=== PATIENT | male | born 1955 | race Caucasian/White ===

== ENCOUNTER 2024-10-31 10:47 | Outpatient (REF) | payer MEDICARE, SELFPAY ==
[2024-10-31 12:18] LABS: Vitamin B12 545 pg/mL (200-900)
== END 2024-10-31 10:48 | disposition home or self-care (01) ==
LOC: HO.LAB 10:47
PROVIDERS: PCP Internal Medicine; Visit Provider Psychiatry & Neurology Neurology
DX: G30.9 Alzheimer's disease, unspecified (principal)
CPT/HCPCS: 36415; 82607; 84443

== ENCOUNTER 2025-03-18 13:43 | Outpatient (AMB) | payer MEDICARE, SELFPAY ==
--- NOTE | 2025-03-18 13:51 | MHC.OFFVIS ---
Intake Visit Reasons: f/u appt Allergies codeine Allergy (Unknown, Verified 03/12/25 13:59) Unknown penicillin G Allergy (Unknown, Verified 03/12/25 13:59) Unknown HPI Comments Details: 69 years old man with hypertension, anxiety, depression, coronary artery disease status post bypass surger, tremor, and mild dementia with MOCA in Sep 2024 of 24. He continues to c/o problem with memory. He was in a social situation and told a story multiple times not knowing that he had done that before. His was writing things on paper for him to buy or what was going on in the house. He was getting more confused. Primidone helped him with tremor but it made him sleepy. Propranalol was tried but it has not worked as well. [facility] Medical History (Updated 03/18/25 @ 13:53 by Joshua Benoit MD) Alzheimer dementia Paresthesia of skin Stress MCI (mild cognitive impairment) CAD (coronary artery disease) of artery bypass graft Hypertension Depression with anxiety Review of Systems Const Details: More confused and forgetful. Physical Exam Neuro Other: Mental Status: Alert and oriented to person, place, and time. Normal attention. Normal spontaneous speech, fluency, and comprehension. Cranial Nerves: CN II: Visual hines full to confrontation, visual acuity intact. CN III, IV, : Pupils equal, round, reactive to light and accommodation. Extraocular movements are normal. CN V: Facial sensation is normal. CN VII: Facial movements symmetrical. CN VIII: Hearing intact to bedside conversation is normal. CN IX, X: Palate elevates symmetrically. CN XI: Shoulder shrug and head turn symmetrical. CN XII: Tongue midline without atrophy or fasciculations. Coordination: Dbfxvi-uc-danc and vazv-xd-uqyn testing normal. No dysmetria. Gait and Station: No obvious gait abnormality. No ataxia or instability. Extrapyramidal: Full facial expressions and blinking. No rigidity. Movements are appropriate with no tremor or abnormality. Speech: Normal; no dysarthria or tremor. Assessment & Plan Assessment & Plan (1) Alzheimer dementia: Comment: MRI brain WO at [facility] in Oct 2024: Mild to mod central atrophy NCV/EMG UE This is a normal study. 09/22/21. MRI brain WO at [facility] in Jun 2020: mild to mod atrophy Code(s): G30.9 - Alzheimer's disease, unspecified; F02.80 - Dementia in other diseases classified elsewhere, unspecified severity, without behavioral disturbance, psychotic disturbance, mood disturbance, and anxiety Category: Medical Qualifiers: Alzheimer's disease onset: late onset Dementia severity: mild Dementia behavioral or psychological symptom: without behavioral, psychotic, or mood disturbance or anxiety Qualified Code(s): G30.1 - Alzheimer's disease with late onset; F02.A0 - Dementia in other diseases classified elsewhere, mild, without behavioral disturbance, psychotic disturbance, mood disturbance, and anxiety (2) Tremor: Code(s): R25.1 - Tremor, unspecified Category: Medical Plan Impression: a: Dementia probably of Alzheimer type. His insurance did not cover PET scan b: Tremor Rec: A: Abeta 42/40 and tau level b: Neuropsychiatric eval c: Propranalol 20mg bid d: Memantine 5mg bid Orders: Orders ABeta 42/40 p-tau 217 Eval Today G31.84 - Mild cognitive impairment of uncertain or unknown etiology Referrals Neuropsychiatry Referral F02.A0 - Dementia in other diseases classified elsewhere, mild, without behavioral disturbance, psychotic disturbance, mood disturbance, and anxiety, G30.1 - Alzheimer's disease with late onset Medications: New memantine (Namenda) 5 mg PO BID 180 tabs 0RF propranolol 20 mg (2 x 10 mg) PO BID 120 tabs 0RF Coding Level of Care Code Est Pt Level 4 (65743) Diagnoses Mild late onset Alzheimer's dementia without behavioral disturbance, psychotic disturbance, mood disturbance, or anxiety G30.1; F02.A0 Alzheimer's disease onset: late onset Dementia severity: mild Dementia behavioral or psychological symptom: without behavioral, psychotic, or mood disturbance or anxiety Tremor R25.1
== END 2025-03-18 14:11 | disposition home or self-care (01) ==
LOC: HO.HSM 13:44
PROVIDERS: PCP Internal Medicine; Visit Provider Psychiatry & Neurology Neurology
DX: G30.1 Alzheimer's disease with late onset (principal); F02.A0 Dementia in other diseases classified elsewhere, mild, without behavioral disturbance, psychotic disturbance, mood disturbance, and anxiety; R25.1 Tremor, unspecified
CPT/HCPCS: 99214

== ENCOUNTER 2025-03-18 13:43 | Outpatient (REF) | payer MEDICARE, SELFPAY ==
--- OUTSIDE RECORDS SUMMARY | 2025-03-18 14:54 | XMS_ITS | Clinical Summary ---
Author Organization [facility] Address [address] [place] [phone] Phone Care Team Providers Care Solar Technician Name Role Phone David Hernandez MD Primary Care Provider [phone] Allergies Active Allergy Reactions Criticality Noted Date Comments Atorvastatin Calcium Itching 08/06/2009 Codeine Nausea And Vomiting 12/03/2005 Penicillins High 12/03/2005 Medications simethicone (Phazyme) 250 mg capsule Take 1 capsule by mouth 1 (one) time each day in the evening. 4 Active tadalafiL (CIALIS) 5 mg tablet Take 20 mg by mouth as needed. Active fexofenadine (HOMAR) 180 mg tablet Take 180 mg by mouth daily. Active aspirin 81 mg EC tablet Take 81 mg by mouth daily. Active multivitamin with minerals (CENTRUM/CERTAV IT) 18-400 mg-mcg tablet tablet daily Active buPROPion SR (WELLBUTRIN SR) 200 mg 12 hr tablet Take 1 tablet (200 mg total) by mouth 2 (two) times a day. 180 tablet 1 5 Active rosuvastatin (CRESTOR) 40 mg tablet Take 1 tablet (40 mg total) by mouth 1 (one) time each day. 90 tablet 1 5 Active ezetimibe (ZETIA) 10 mg tablet Take 1 tablet (10 mg total) by mouth 1 (one) time each day. 90 tablet 1 5 Active diclofenac (VOLTAREN) 1 % topical gel Apply 2 g topically 4 (four) times a day. 30 g 3 5 Active primidone (MYSOLINE) 50 mg tablet Take 1 tablet (50 mg total) by mouth 1 (one) time each day. Active amLODIPine (NORVASC) 10 mg tablet Take 1 tablet (10 mg total) by mouth 1 (one) time each day. 90 tablet 1 5 Active omeprazole (PriLOSEC) [address] capsule TAKE 1 CAPSULE BY MOUTH DAILY 90 capsule 1 5 Active lisinopriL (PRINIVIL,ZESTR IL) 10 mg tablet Take 1 tablet (10 mg total) by mouth 1 (one) time each day. 90 tablet 1 5 Active Active Problems Problem Noted Date Diagnosed Date CKD (chronic kidney disease) stage 2, GFR 60-89 ml/min 12/12/2024 Mild cognitive impairment 04/27/2021 Overview (07/11/2024): Follows with neurology (Cy) on 2 yr basis. Tremor 04/27/2021 Overview (07/11/2024): Follows with neurology (Cy) White matter abnormality on MRI of brain Overview (07/11/2024): MRI of the brain on 06-25-20 showing minimal nonspecific white matter T2 hyperintensities. CAD (coronary artery disease) 05/10/2019 Assessment & Plan (12/20/2024 6:26 AM EDT): The patient has a history of coronary artery disease. Currently, the patient denies any chest pain at rest or with exertion. The patient continues on secondary preventive therapy for CAD, including: aspirin, statin and beta chayito. Will continue current therapy. 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 Echocardiogram did not show any wall motion abnormalities and no evidence of ischemia on nuclear stress test. He remains active without exertional symptoms. Continue with medical therapies as prescribed. I have reviewed with the patient the importance of a heart healthy lifestyle which includes eating a low-fat low-salt diet, getting regular exercise, maintaining a healthy weight, not smoking, and following up with routine medical care. Assessment & Plan (11/05/2024 5:15 PM EDT): The patient has a history of coronary artery disease. Currently, the patient denies any chest pain at rest or with exertion. The patient continues on secondary preventive therapy for CAD, including: aspirin, statin and beta chayito. Will continue current therapy. EKG today showing new left anterior fascicular block and inferior infarct which was not previously noted. I will arrange for an ischemic workup with a nuclear stress test. Will also update an echocardiogram. During today's visit, we reviewed the warning signs that should prompt an urgent medical evaluation. Specifically, we discussed that the patient should go to the hospital if she develops any chest discomfort at rest or worsening chest discomfort with exertion. Other urethral stricture, male, meatal 9 BPH (benign prostatic hyperplasia) 10/09/2013 Overview (07/11/2024): Follows with [facility] Basal cell carcinoma of skin 07/20/2012 Overview (07/11/2024): BCC 07/19 upper lip (nodular) Heartburn 05/04/2007 Essential hypertension, benign 11/14/2006 Assessment & Plan (12/20/2024 6:26 AM EDT): Patient's blood pressure today is reasonable today. Continue with medial regimen. Assessment & Plan (11/05/2024 5:15 PM EDT): Patient's blood pressure today is quite elevated with a reading of 162/96. This did not improve with recheck. I have asked him to take his amlodipine in the morning and to increase his lisinopril to 40 mg once a day. We will update a basic metabolic panel in 1 week. Diverticulitis of colon without hemorrhage 10/24 Overview (07/11/2024): Incidental finding at colonoscopy 10/24/2006. Depressive disorder 12/03/2005 Mixed hyperlipidemia 12/03/2005 Assessment & Plan (12/20/2024 6:26 AM EDT): Patient continues on rosuvastatin and Zetia. His goal LDL cholesterol is less than 70. His last LDL cholesterol was 47. This is at goal continue with therapy as prescribed. Assessment & Plan (11/05/2024 5:15 PM EDT): Patient continues on rosuvastatin and Zetia. His goal LDL cholesterol is less than 70. His last LDL cholesterol was 47. This is at goal continue with therapy as prescribed. Encounters Date Type Department Care Team Description 12/26/2024 Telephone [facility] [address] [place] [address] Greer Bautista NP Lab Results 12/18/2024 3:10 PM EDT Office Visit [facility] [address] [place] [phone] Greer Bautista NP Coronary artery disease involving [place] coronary artery of [place] heart without angina pectoris (Primary Dx); Essential hypertension, benign; Mixed hyperlipidemia from Last 3 Months Immunizations Name Administration Dates Next Due Influenza Quadravalent, MDCK , 0.5ml, with preservative (Flucelvax) 6mo and older 05/09/2018,05/03/2017 Influenza trivalent, 0.5mL ( Fluad) 65yo and older 05/22/2022,04/08/2021 Influenza trivalent, 0.5mL, preservative free (Fluarix; FluLaval; Fluzone) ages 6mo and older (Afluria) 3 years and older 04/28/2016,06/03/2015,05/29/2014,2012,05/28/2012,06/24/2011,07/11/2009,1 ,05/03/2007 PPD Test 02/21/2003 Pfizer Covid-19 Bivalent, Or iginal + Ba.1 (Non-US Trademark COMIRNATY Bivalent) 05/22/2022 Pneumococcal conjugate 20 va lent (Prevnar 20, PCV 20) 2mo and older 11/07/2021 Rubella 08/14/2003 Tdap Tetanus diptheria acell ular pertussis (Boostrix; Adacel) 7yo and older 06/18/2020,02/03/2009 Zoster Live 10/28/2016 Zoster recombinant (Shingrix ) 19yo and older 11/07/2021,04/08/2021 Surgical History Surgery Date Site/Laterality Comments OTHER SURGICAL HISTORY 10/24/2006 PROCEDURE: COLON CA SCRN NOT HI RSK IND; COMMENT: Negative OTHER SURGICAL HISTORY PROCEDURE: HISTORICAL MELANOMA Medical History Medical History Date Comments Chronic ischemic heart disea se, unspecified 12/03/2005 DX:Chronic ischemic heart di sease, unspecified Mixed hyperlipidemia 12/03/2005 DX:Mixed hy perlipidemia Depressive disorder, not els ewhere classified 12/03/2005 DX:Depressive disorder, not elsewhere classified Special screening for malign ant neoplasms, colon 10/24/2006 DX:Special screening for mal ignant neoplasms, colon; COMMENT: Negative colonoscopy 10/24/2006, no colon cancer screening needed for 10 years. Diverticulosis of colon (wit hout mention of hemorrhage) 10/24/2006 DX:Diverticulosis of colon ( without mention of hemorrhage); COMMENT: Incidental finding at colonoscopy 10/24/2006. Basal cell carcinoma of skin 07/20/2012 DX: Basal cell carcinoma of skin Family History Medical History Relation Name Comments Heart attack Mother Heart attack Paternal Grandfather Relation Name Status Comments Mother Paternal Grandfather Social History Tobacco Use Types Packs/Day Years Used Date Smoking Tobacco: Former Cigarettes Smokeless Tobacco: Former Tobacco Cessation:Counseling Given: Not Answered Alcohol Use Standard Drinks/Week Comments Yes 0 (1 standard drink = 0.6 oz pur e alcohol) 1.5 drink daily Housing Instability Answer Date Recorde d Are you worried that in the next 2 months you may not have stable housing? No 09/17/2024 Food Access & Nutrition Answer Date Rec orded Do you have access to a vari ety of food including fruits and vegetables? Yes 09/17/2024 Health Literacy Answer Date Recorded How often do you need to hav e someone help you when you read instructions, pamphlets, or other written material from your doctor or pharmacy? Never 09/17/2024 Caregiver: How often do you need to have someone help you when you read instructions, pamphlets, or other written material from your doctor or pharmacy? Not on file 09/17/2024 Financial Risk Answer Date Recorded How hard is it for you to pa y for the very basics like food, housing, medical care, and air conditioning / heating? Not very hard 09/17/2024 Transportation Answer Date Recorded Has the lack of transportati on kept you from meetings, work, or from getting things needed for daily living? No Has the lack of transportati on kept you from medical appointments or from getting medications? No 09/17/2024 Social Isolation Answer Date Recorded How often do you feel lonely or isolated from th ose around you? Never 09/17/2024 Food Risk Answer Date Recorded Within the past 12 months we worried whether our food would run out before we got money to buy more. Never true 09/17/2024 Within the past 12 months th e food we bought just didn't last and we didn't have money to get more. Never true 09/17/2024 Dependent Care Answer Date Recorded Do you need help finding or paying for care for your loved ones. For example, early childhood education instructor or elderly care for an older adult? No 09/17/2024 Education Answer Date Recorded Do you think completing more education or training, like finishing a GED, going to college, or learning a trade, would be helpful for you? N/A 09/17/2024 Employment and Income Answer Date Recor ded During the last four weeks, have you been actively looking for work? No 09/17/2024 Living Situation Answer Date Recorded What is your living situation? 0 09/17/2024 Sex and Gender Information Value Date Recorded Sex Assigned at Male 07/03/2024 11:34 AM EST Legal Sex Male 2:37 AM EST Gender Identity Male 07/03/2024 11:34 AM EST Sexual Orientation Not on file Obstetrics History Last Filed Vital Signs Vital Sign Reading Time Taken Comments Blood Pressure 136/62 12/18/2024 2:59 PM EDT Pulse 68 12/18/2024 2:59 PM EDT Temperature 36.8 C (98.2 F) 09/24/2024 11:28 AM EST Respiratory Rate 14 09/24/2024 11:2 8 AM EST Oxygen Saturation 98% 12/18/2024 2:59 PM EDT Inhaled Oxygen Concentration - - Weight 74.8 kg (164 lb 14.4 oz) 12/18/2024 2:59 PM EDT Height 167.6 cm (5' 6 ) 12/18/2024 2:59 PM EDT Body Mass Index 26.62 12/18/2024 2:59 PM EDT Plan of Treatment Upcoming Encounters Date Type Department Care Team (Late st Contact Info) Description 04/10/2025 9:45 AM EDT Office Visit [facility] [place] [address] [place] [address] David Hernandez MD [address] [place] [phone] 05/10/2025 8:50 AM EDT Office Visit [facility] [address] [place] [address] [place] [phone] Tu Conley MD [address] [place] [address] [address] [place] [address] 12/25/2025 2:15 PM EDT Office Visit Nephrology - [address] [phone] Diaz Del Valle MD [address] [facility] [address] [place] [phone] Health Maintenance Due Date Last Done Comments Medicare Annual Wellness Visit 07/17/2022 COVID-19 Vaccine (6 - Moderna risk season) 2024 05/11/2024, 05/20/2023, 06/07/2021, Additional history exists Influenza Vaccine (#1) 2025 , 05/20/2023, 05/22/2022, Additional history exists Social Influencers of Health Screening 09/17/2025 09/17/2024 Falls Risk Assessment 09/24/2025 09/24/2024 Hypertension/CHF/CAD Annual BMP Blood Test 12/24/2025 12/24/2024, 11/12/2024, 09/24/2024, Additional history exists Colorectal Cancer Screening: Colonoscopy 12/21/2028 12/21/2018 Cholesterol Screening (Lipid Panel) 09/24/2029 09/24/2024, 09/09/2023 DTaP,Tdap,and Td Vaccines (3 - Td or Tdap) 06/18/2030 06/18/2020, 02/03/2009 RSV Immunization Adult Patients (1 - 1-dose 75+ series) 2030 Hepatitis C Screening Completed 10/28/2016 Pneumococcal Vaccine: 50+ Years Completed 11/07/2021 Zoster Vaccines Completed 11/07/2021, 09/0 08/2020, 10/28/2016 Abdominal Aortic Aneurysm (AAA) Screen Completed 03/16/2023, 03/16/2023 Depression Screening Completed 09/17/2024 HIB Vaccines Aged Out No longer eligi ble based on patient's age to complete this topic HPV Vaccines Aged Out No longer eligi ble based on patient's age to complete this topic Hepatitis A Vaccines Aged Out No long er eligible based on patient's age to complete this topic Hepatitis B Vaccines Aged Out No long er eligible based on patient's age to complete this topic IPV Vaccines Aged Out No longer eligi ble based on patient's age to complete this topic MMR Vaccines Aged Out No longer eligi ble based on patient's age to complete this topic Meningococcal ACWY Vaccine Aged Out N o longer eligible based on patient's age to complete this topic Meningococcal B Vaccine Aged Out No l onger eligible based on patient's age to complete this topic RSV Immunization Patients Under 20 months Aged Out No longer eligible based on patient's age to complete this topic Varicella Vaccines Aged Out No longer eligible based on patient's age to complete this topic Procedures Procedure Name Priority Date/Time Associated Diagnosis Comments BASIC METABOLIC PANEL Routine 12/24/2024 9:35 AM EDT Essential hypertension, benign LIPID PANEL WITH REFLEX TO DIRECT LDL Routine 09/24/2024 12:38 PM EST Pure hypercholesterolemia US ABDOMINAL AORTA REAL TIME SCREEN STUDY AAA Routine 03/16/2023 7:55 AM EDT Encounter for screening for cardiovascular disorders [facility] COLONOSCOPY Routine 12/21/2018 HEPATITIS C SCREENING Routine 10/28/2016 from Last 3 Months or Most Recently Relevant to Health Maintenance Results * (ABNORMAL) Basic metabolic panel (12/24/2024 9:35 AM EDT) Glucose 104(H) 70 - 99 mg/dL [facility] Blood Urea Nitrogen (BUN) 28(H) 8 - 27 mg/dL [facility] Creatinine 1.31(H) 0.76 - 1.27 mg/dL [facility] 1 eGFR 59(L) >59 mL/min/1.7 3 [facility] BUN/Creatinine Ratio 21 10 - 24 [facility] 1 Sodium 141 134 - 144 mmol/L [facility] Potassium 5.4(H) 3.5 - 5.2 mmol/L [facility] 1 Chloride 100 96 - 106 mmol/L [facility] 1 Carbon Dioxide 16(L) 20 - 29 mmol/L [facility] Calcium 10.0 8.6 - 10.2 mg/dL [facility] 1 Blood Venous blood specimen / Unknown 12/24/2024 9:35 AM EDT 12/24/2024 Narrative [facility] 1 - 12/25/2024 9:06 PM EDT Performed at: 01 - [facility] [id number] Medical Staff Services Coordinator: Tracy Jaimes MD, Phone: [phone] us Greer Bautista NEGATIVE DEVELOPER LAB BLOOD ORDERABLES Final R esult [facility] * Lipid panel with reflex to direct LDL (09/24/2024 12:38 PM EST) Cholesterol 157 0 - 200 mg/dL LAB CHEMISTRY METHOD 09/24/2024 4:55 PM EST [facility] Triglycerides 117 0 - 150 mg/dL LAB CHEMISTRY METHOD 09/24/2024 4:55 PM EST [facility] HDL 87 >=40 mg/dL LAB CHEMISTRY METHOD 09/24/2024 4:55 PM EST [facility] LDL Calculated 47 0 - 100 mg/dL LAB CHEMISTRY METHOD 09/24/2024 4:55 PM EST [facility] VLDL Cholesterol Galo 23.4 mg/dL LAB CHEMISTRY METHOD 09/24/2024 4:55 PM EST [facility] Non HDL Chol. (LDL+VLDL) 70 <145 mg/dL LAB CHEMISTRY METHOD 09/24/2024 4:55 PM EST [facility] Chol/HDL Ratio 1.8 0.0 - 4.4 LAB CHEMISTRY METHOD 09/24/2024 4:55 PM EST [facility] Blood Venous blood specimen / Unknown Venipuncture / Unknown 09/24/2024 12:38 PM EST 09/24/2024 12:38 PM EST us David Hernandez MD LAB BLOOD ORDERABLES Final Resu lt [facility] [address] [place] [address], [place] [phone] * US ABDOMINAL AORTA REAL TIME SCREEN STUDY AAA (03/16/2023 7:55 AM EDT) Anatomical Region Laterality Modality Ultrasound 03/09/2023 10:1 9 AM EDT Narrative 03/16/2023 10:44 AM EDT EXAM: Ultrasound evaluation of the abdominal aorta. HISTORY: Screening abdominal aortic aneurysm COMPARISON:None Technique: Grayscale and Doppler images of the abdominal aorta and proximal common iliac arteries were obtained. FINDINGS: Proximal abdominal aorta measures 2.2 x 2.3 x 2.4 cm in caliber Mid abdominal aorta measures 1.5 x 2.0 x 1.4 cm in caliber Distal abdominal aorta measures 1.2 x 1.7 x 1.0 cm in caliber Left proximal common iliac artery measures 0.8 cm in caliber Right proximal common iliac artery measures 0.7 cm in caliber IMPRESSION: IMPRESSION: No evidence of abdominal aortic aneurysm Procedure Note Rox Weiss MD - 09/13/2023 EXAM: Ultrasound evaluation of the abdominal aorta. HISTORY: Screening abdominal aortic aneurysm COMPARISON:None Technique: Grayscale and Doppler images of the abdominal aorta andproximal common iliac arteries were obtained. FINDINGS: Proximal abdominal aorta measures 2.2 x 2.3 x 2.4 cm in caliber Mid abdominal aorta measures 1.5 x 2.0 x 1.4 cm in caliber Distal abdominal aorta measures 1.2 x 1.7 x 1.0 cm in caliber Left proximal common iliac artery measures 0.8 cm in caliber Right proximal common iliac artery measures 0.7 cm in caliber IMPRESSION: IMPRESSION: No evidence of abdominal aortic aneurysm David Hernandez MD [facility] US PROCEDURES Final Result * Colonoscopy (12/21/2018) [facility] Colonoscopy no interpretation , abstracted Anatomical Region Laterality Modality Other Historical Provider HEALTH MAINTENANCE Final Result * Hepatitis C Screening (10/28/2016) [facility] Hepatitis C Screening abstracted Historical Provider HEALTH MAINTENANCE Final Result from Last 3 Months or Most Recently Relevant to Health Maintenance Insurance [employer] - [place] MEDICARE ADVANTAGE Care Teams Solar Technician Relationship Specialty Start Date End Date David Hernandez MD [address] [place] [phone] PCP - General 11/07/06
[2025-03-27 12:34] LABS: ABETA 42/40 Ratio 0.162 (> OR = 0.170); Alzeheimer's Interpretation Indeterminant; Alzeimer's Disease Score 0.5199; Tau protein phosphorylated 217 0.41 pg/mL (< OR = 0.15)
== END 2025-03-18 13:44 | disposition home or self-care (01) ==
LOC: HO.LAB 13:43
PROVIDERS: PCP Internal Medicine; Visit Provider Psychiatry & Neurology Neurology
DX: G30.1 Alzheimer's disease with late onset (principal); F02.A0 Dementia in other diseases classified elsewhere, mild, without behavioral disturbance, psychotic disturbance, mood disturbance, and anxiety; R25.1 Tremor, unspecified; Z79.899 Other long term (current) drug therapy
CPT/HCPCS: 36415; 82233; 82234; 84393; 99212